=== PATIENT | female | born 1965 | race African-American/Black ===

== ENCOUNTER → 2017-05-12 | Outpatient (CLI) | payer BC, OTHER ==
--- NOTE | ~2017-05-12 | EXE ---
[facility] [place] [address] STRESS ECHOCARDIOGRAM Name: CARLIE ATKINS Room #: REG [facility]#: [id number] Admission: 05/12/17 Attend Phys: Physician not on s Discharge: Date of : 63 Date of Service: 05/12/17 1432 Report #: [id number] THIS REPORT FOR: //name// APPROVED REPORT Exam: Stress Echocardiogram Indication: Chest tightness, short of breath Patient Location: Out-Patient Stress Nurse: Sierra Gordon RN Status: routine Ht: 5 ft 5 in HR: 75 bpm BP: 120/76 mmHg Rhythm: NSR Medical History Medical History: None Medications: None Allergies: No known drug allergies Cardiac Risk Factors: None Procedure The patient underwent an Exercise Stress Test using the Uday Protocol. Blood pressure, heart rate, and EKG were monitored. An Echocardiogram was performed by sanitation technician in four stages in quad fashion. At peak stress, four selected images were obtained and placed side by side with resting images for comparison. Echo Enhancing Agent Indication: Endocardial border delineation Agent(s) / Amount(s) Used: Optison 8 cc Stress Test Details Stress Test: Exercise stress testing was performed using a Uday protocol. HR Resting HR: 75 bpm Max Heart Rate (APMHR): 168 bpm Max HR Achieved: 171 bpm Target HR (85% APMHR): 142 bpm % of APMHR: 101 Recovery HR: 96 bpm HR response to stress: Normal HR response to stress BP Resting BP: 120/76 mmHg Max BP: 144/76 mmHg [facility] [address] [place] [address] STRESS ECHOCARDIOGRAM Name: CARLIE ATKINS Room #: REG [facility]#: [id number] Admission: 05/12/17 Attend Phys: Physician not on s Discharge: Date of : 63 Date of Service: 05/12/17 1432 Report #: [id number] Recovery BP: 116/85 mmHg ECG Resting ECG: Sinus Rhythm Stress ECG: Sinus Tachycardia Recovery ECG: Sinus Rhythm Clinical Reason for Termination: Moderate fatigue, protocol completed Stress Symptoms: Short of breath, leg pain, fatigue Exercise duration: 8 min 39 sec Highest Stage Achieved: Stage 3: 3.4 mph at 14% grade. Exercise capacity: 10.10 METs Patient noted "chest tightness" before and during the exam. 08/03. Stress ECG Conclusion 1. SUBJECTIVELY ABNORMAL WITH THE PRESENCE OF ATYPICAL CHEST PAIN AT REST WHICH DID NOT WORSEN DURING EXERCISE 2. ELECTROCARDIOGRAPHICALLY NEGATIVE FOR ISCHEMIA WITH J POINT DEPRESSION WHICH DID NOT FULFILL CRITERIA FOR ISCHEMIA 3. AVERAGE FUNCTIONAL CAPACITY Pre-Stress Echo The resting Echocardiogram showed normal left ventricular contractility with an estimated Ejection Fraction of about 55-60%. Trivial MR, AI. Mild TR. Normal wall motion in all segments on baseline images. Post-Stress Echo The stress Echocardiogram showed normal left ventricular contractility with an estimated Ejection Fraction of about 65-70%. Normal augmentation of wall motion in all segments on post stress images. THE SHORT AXIS PARASTERNAL WAS SLIGHTLY OFF AXIS BUT IMPROVED THICKENING OF SEPTUM NOTED Conclusion 1. LOW RISK STUDY WITH NO EVIDENCE OF EXERCISE INDUCED WALL MOTION ABNORMALITIES Other Information Study Quality: Adequate <Conclusion> [facility] [address] [address] STRESS ECHOCARDIOGRAM Name: CARLIE ATKINS Room #: REG [facility]#: [id number] Admission: 05/12/17 Attend Phys: Physician not on s Discharge: Date of : 63 Date of Service: 05/12/17 1432 Report #: [id number] 1. LOW RISK STUDY WITH NO EVIDENCE OF EXERCISE INDUCED WALL MOTION ABNORMALITIES <ELECTRONICALLY SIGNED> By: Christopher Saunders MD 05/12/171431 31 31 Christopher Saunders MD /INF
== END ==
LOC: CV 05-07 12:59
DX: R07.89 Other chest pain (principal); R06.02 Shortness of breath